=== PATIENT | male | born 1995 | race Hispanic/Latino ===

== ENCOUNTER 2016-11-01 22:15 | Emergency (ER) | payer MEDICAID, OTHER ==
[2016-11-01 22:15] VITALS: BMI 27.7
[2016-11-01 22:41] VITALS: RESP 16; O2SAT 100
--- NOTE | 2016-11-01 23:46 | ED PDOC ---
Lower Extremity Pain/Injury Time Seen by Provider: 11/01/16 22:55 Chief Complaint (Nursing): Lower Extremity Problem/Injury Chief Complaint (Provider): Right great toe pain for weeks, getting worse History Per: Patient History/Exam Limitations: no limitations Onset/Duration Of Symptoms: Days Current Symptoms Are (Timing): Still Present Severity: Moderate Additional Complaint(s): Pt report pain, swelling, drainage and growth of skin over nail on the right great toe. No similar in the past. PT reports doing warm soaks. Past Medical History Reviewed: Historical Data, Nursing Documentation, Vital Signs Vital Signs: Last Vital Signs Temp 98.1 F 11/01/16 22:35 Pulse 78 11/01/16 22:35 Resp 16 11/01/16 22:35 BP 136/75 11/01/16 22:35 Pulse Ox 100 11/01/16 22:35 - Medical History PMH: No Chronic Diseases - Surgical History Surgical History: No Surg Hx - Family History Family History: States: No Known Family Hx - Living Arrangements Living Arrangements: With Family - Social History Current smoker - smoking cessation education provided: No - Allergies Allergies/Adverse Reactions: Allergies Allergy/AdvReac Type Severity Reaction Status Date / Time No Known Allergies Allergy Verified 11/01/16 22:35 Review of Systems ROS Statement: Except As Marked, All Systems Reviewed And Found Negative Musculoskeletal: Positive for: Foot Pain Physical Exam - Reviewed Nursing Documentation Reviewed: Yes Vital Signs Reviewed: Yes - Physical Exam Appears: Positive for: Well, Non-toxic, No Acute Distress Head Exam: Positive for: ATRAUMATIC, NORMAL INSPECTION, NORMOCEPHALIC Skin: Positive for: Warm. Negative for: Normal Color ((+) erythema of the right great toe ) Eye Exam: Positive for: Normal appearance Neck: Positive for: Normal, Painless ROM Respiratory: Negative for: Accessory Muscle Use, Respiratory Distress Back: Positive for: Normal Inspection Extremity: Positive for: Normal ROM, Other ((+) ingroen toe nail on the right with surrounding eyrthema, (+) right great toe edema ) Neurologic/Psych: Positive for: Alert, Oriented - ECG O2 Sat by Pulse Oximetry: 100 Disposition - Clinical Impression Clinical Impression: Ingrown nail - Patient ED Disposition Is Patient to be Admitted: Transfer of Care - Disposition Disposition: Transfer of Care Disposition Time: 23:55 Condition: GOOD
[2016-11-02] MEDS ORDERED: Lidocaine 1% Inj (20ml) ONE (00:46)
--- NOTE | 2016-11-02 00:47 | CP.PCM.CON ---
History of Present Illness - History of Present Illness History of Present Illness: 21 year old male with no remarkable PMH. Presents for right foot painful ingrown toenail. Pt grades pain a 5/10 and pain is at increased to this level over the past 5 days. This issue has persisted for the past month. Pt initially tried to be seek medical attention 3 weeks at [facility]. However due to prolonged wait time left without having issue addressed. Took Amoxacillin 3 weeks ago which help relieve symptoms and has been soaking in epsom salts for past month. Pt denies recent f/c/cp/sob/n/v. Pt accompanied by mother. Past Patient History - Infectious Disease Hx of Infectious Diseases: None - Tetanus Immunizations Tetanus Immunization: Up to Date - Past Social History Smoking Status: n - PSYCHIATRIC Hx Substance Use: No Meds Home Medications: Home Medication List Medication Instructions Recorded Confirmed Type Amoxicillin/Clavulanate [Augmentin 1 tab PO BID #14 tab 11/02/16 Rx 875 MG-125 MG] Allergies/Adverse Reactions: Allergies Allergy/AdvReac Type Severity Reaction Status Date / Time No Known Allergies Allergy Verified 11/01/16 22:35 Physical Exam - Constitutional Appears: Well, Non-toxic, No Acute Distress - Extremities Exam Additional comments: Right foot focused. VASC: DP and PT pulses palpable graded 3/4 and 2/4 respectively. Negative calf tenderness on compression. Temperature runs warm to cool proximal to distal. DERM: Medial hallux border erythema, edema and friable distal medial nail fold with minor purulent discharge and an incurvating medial nail plate. Erythema nterminated prior to Metatarsal phalangeal joint. No open wounds, lesion, or macerations noted. No hyper-keratotic lesion. NEURO: Protective sensation and epicritic sensation grossly intact. MUSK: Pedal muscle strength is graded 5/5 in all 4 major pedal muscle groups. No gross deformities noted. - Neurological Exam Neurological exam: Alert, Oriented x3 - Psychiatric Exam Psychiatric exam: Normal Affect, Normal Mood Results - Vital Signs Recent Vital Signs: Last Vital Signs Temp 98.1 F 11/01/16 22:35 Pulse 78 11/01/16 22:35 Resp 16 11/01/16 22:35 BP 136/75 11/01/16 22:35 Pulse Ox 100 11/01/16 23:46 Assessment & Plan - Assessment and Plan (Free Text) Assessment: 21 year old male with right medial hallux ingrown toenail and associated paronychia. Plan: Pt evaluated and treated. Charts labs and vitals were reviewed. Discussed with attending, Dr. Lin, who endorsed the following plan. -Explained to patient etiology of problem and need for a partial nail avulsion and antibiotic regimen. Pt agreed and all questions and concerns were addressed. --Aseptically injected 6 mLs of 1% lidocaine plain in alocal block type fashion to the right hallux. Excision of medial margin of hallux nail plate , nail matrix left intact. Currreted fro nail spicules. Flushed w/ copious amounts of sterile saline. Dressed with bacitracin, 4x4 gauze, kerlix, DSD, & Coban. Pt to keep dressing intact for next 3 days. Can soak in epsom salts bath after 3 days. Aware to be vigilant for acute signs of infection or excess bleeding and to return to care for follow up. Pt to follow up with Dr. Lin within 1 week. - Date & Time Date: 11/02/16 Time: 01:05
[2016-11-02] MEDS ORDERED: Lidocaine 1% Inj (20ml) IJ ONE (00:48)
[2016-11-02 01:47] VITALS: BP 134/73; PULSE 74; TEMP 98.6
--- NOTE | 2016-11-02 02:01 | ED PDOC ---
- ECG O2 Sat by Pulse Oximetry: 100 - Progress ED Course And Treament: Case endorsed to magazine writer from [facility]GEL pending podiatry eval Patient evaluated by podiatry resident on-call; procedure performed, area dressed. Recommends follow up podiatry outpatient, abx. Rx augmentin provided. Return to ED for worsening/concerning symptoms. Disposition - Clinical Impression Clinical Impression: Ingrown nail - POA Present On Arrival: None - Disposition Referrals: Podiatry Clinic [Outside] Disposition: Routine/Home Disposition Time: 01:45 Condition: IMPROVED Prescriptions: Amoxicillin/Clavulanate [Augmentin 875 MG-125 MG] 1 tab PO BID #14 tab Instructions: Ingrown Nail (ED)
--- NOTE | 2016-11-02 10:18 | RAD ---
PROCEDURE: Radiographs of the right great toe. TECHNIQUE:: AP radiograph of the right foot, with oblique and lateral view of the right great toe. COMPARISON: None. FINDINGS: BONES: The current study reveals no evidence of acute displaced fracture nor dislocation. The osseous structures appear grossly intact. No cortical destructive changes. JOINTS: Joint spaces preserved. SOFT TISSUES: Questionable mild localized soft tissue swelling along the medial aspect toenail bed right great toe. No radiopaque foreign bodies. OTHER FINDINGS: None. IMPRESSION: No evidence of acute displaced fracture nor dislocation. . Questionable mild localized soft tissue swelling along the medial aspect toenail bed right great toe
== END 2016-11-02 01:48 | disposition home or self-care (01) ==
LOC: H.ER 22:15
DX: L60.0 Ingrowing nail (principal)